=== PATIENT | female | born 1980 ===

== ENCOUNTER 2017-06-28 04:36 | Emergency (ER) | payer BC ==
[2017-06-28 04:50] VITALS: BMI 42.7
[2017-06-28 05:48] LABS: BASO % 0.5 % (0.0-2.0); EOS # 0.2 K/uL (0.0-0.7); EOS % 4.6 % (0.0-4.0); HEMATOCRIT 34.4 % (34.0-47.0); LYMPH # 1.4 K/uL (1.0-4.3); LYMPH % 30.4 % (20.0-40.0); MEAN CELL VOLUME 81.5 fl (81.0-99.0); MEAN CORPUSCULAR HEMOGLOBIN 26.2 pg (27.0-31.0); MEAN CORPUSCULAR HGB CONC 32.2 g/dL (33.0-37.0); MEAN PLATELET VOLUME 7.4 fl (7.2-11.7); MONO # 0.5 K/uL (0.0-0.8); MONO % 11.1 % (0.0-10.0); NEUT # 2.5 K/uL (1.8-7.0); NEUT % 53.4 % (50.0-75.0); WHITE BLOOD COUNT 4.6 K/uL (4.8-10.8)
--- NOTE | 2017-06-28 05:52 | ED PDOC ---
HPI: General Adult Time Seen by Provider: 06/28/17 04:41 Chief Complaint (Nursing): Chest Pain History Per: Patient History/Exam Limitations: no limitations Onset/Duration Of Symptoms: Days Have you had recent travel within the past 21 days to any of the following countries: [place], [place], [place] or [place]?: No Current Symptoms Are (Timing): Still Present Severity: Moderate Recently: Seen In ED, Hospitalized Additional History Per: Patient Additional Complaint(s): 37 y/o female here this morning with multiple complaints. She complains of cough for the last few days and associated with chest discomfort. Patient denies any fever or chills. She also complains of episodes of forgetfulness and confusion that last for months, and have been ongoing for some time. Patient was seen at [facility] in March 2017 for the same, and admitted then discharged after a negative work up. She was also evaluated for seizure/pseudoseizure this was negative as well. Patient was not given a specific diagnosis but was told that her complaints may be due to a drug interaction (Methadone, Trileptal, and Wellbutrin among others) and was encouraged to discontinue Wellbutrin. She did stop the Wellbutrin and felt better but not back to previous baseline. Patient was instructed to follow up with Neurology but was unable to do so because of insurance coverage changes. Of note, patient has been seen in this department on several occasions for crisis evaluation. Past Medical History Vital Signs: Last Vital Signs Temp 98.9 F 06/28/17 07:39 Pulse 82 06/28/17 07:39 Resp 18 06/28/17 07:39 BP 116/54 L 06/28/17 07:39 Pulse Ox 95 07/01/17 10:34 - Medical History PMH: Anxiety, Back Problems (scoliosis), Bipolar Disorder, Depression, Diabetes (pre) Other PMH: Lupus - Surgical History Surgical History: No Surg Hx - Family History Family History: States: Unknown Family Hx - Social History Current smoker - smoking cessation education provided: No Ex-Smoker (has not smoked in the last 12 months): No Alcohol: None Drugs: Denies - Immunization History Hx Tetanus Toxoid Vaccination: No Hx Influenza Vaccination: No Hx Pneumococcal Vaccination: No - Home Medications Home Medications: Ambulatory Orders Medication Instructions Recorded LORazepam 1 mg PO TID 11/17/14 Synthroid 150 mg PO DAILY 11/17/14 Vitamin D 50,000 units PO Q2W 11/17/14 Zolpidem Tartrate 12.5 mg PO HS #10 ter 11/17/14 Cyclobenzaprine HCl [Flexeril] 1 tab PO TID PRN #25 tab 12/29/14 Ibuprofen 800 mg PO TID #20 tab 12/29/14 Soma 350 mg PO Q6 12/29/14 Fioricet 1 tab PO Q6 02/06/16 Hydroxychloroquine Sulfate 200 mg PO DAILY 02/06/16 [Plaquenil] Levocetirizine Dihydrochloride 5 mg PO 02/06/16 [Levocetirizine Dihydrochloride] Liraglutide [Saxenda] 3 mg SQ 02/06/16 Lurasidone HCl [Latuda] 60 mg PO 02/06/16 Nitrofurantoin Macrocrystals 100 mg PO BID #14 cap 02/06/16 [Macrobid] Temazepam [Restoril] 30 mg PO HS 02/06/16 Thyroid,Pork [Fulda Thyroid] 120 mg PO DAILY 02/06/16 Topiramate [Topamax] 25 mg PO BID 02/06/16 buPROPion [Bupropion HCl] 150 mg PO DAILY 02/06/16 Albuterol HFA [Ventolin HFA 90 1 - 2 puff IH Q4H PRN #1 bottle 06/28/17 mcg/actuation (8 g)] - Allergies Allergies/Adverse Reactions: Allergies Allergy/AdvReac Type Severity Reaction Status Date / Time Penicillins Allergy RASH Verified 06/28/17 04:50 Review of Systems ROS Statement: Except As Marked, All Systems Reviewed And Found Negative Cardiovascular: Positive for: Chest Pain Respiratory: Positive for: Cough Psych: Negative for: Suicidal ideation Physical Exam - Reviewed Nursing Documentation Reviewed: Yes Vital Signs Reviewed: Yes - Physical Exam Appears: Positive for: Well, Non-toxic, No Acute Distress Head Exam: Positive for: ATRAUMATIC, NORMAL INSPECTION, NORMOCEPHALIC Skin: Positive for: Normal Color, Warm, DRY Eye Exam: Positive for: EOMI, Normal appearance, PERRL ENT: Positive for: Normal ENT Inspection Neck: Positive for: Normal, Painless ROM Cardiovascular/Chest: Positive for: Regular Rate, Rhythm Respiratory: Positive for: CNT, Normal Breath Sounds Gastrointestinal/Abdominal: Positive for: Normal Exam, Bowel Sounds, Soft Back: Positive for: Normal Inspection Extremity: Positive for: Normal ROM Neurologic/Psych: Positive for: Alert, Oriented. Negative for: Motor/Sensory Deficits - Laboratory Results Result Diagrams: 06/28/17 05:35 06/28/17 05:35 - ECG O2 Sat by Pulse Oximetry: 95 - Radiology X-Ray: Interpreted by Me, Viewed By Me X-Ray Interpretation: No Acute Disease Medical Decision Making Medical Decision Making: Impression: R/O PNA, psychiatric illness, medication interaction Plan: - Labs - CXR Patient given an Albuterol treatment. Labs and CXR reviewed. Patient referred to outpatient neurology. Rx for Albuterol MDI given. All questions answered. Patient discharged in stable condition. Diagnosis: Cough Scribe Attestation: Documented by Cary Heck acting as a scribe for Tiago Kong MD. Scribe Attestation: All medical record entries made by the Scribe were at my direction and personally dictated by me. I have reviewed the chart and agree that the record accurately reflects my personal performance of the history, physical exam, medical decision making, and the department course for this patient. I have also personally directed, reviewed, and agree with the discharge instructions and disposition. Disposition - Clinical Impression Clinical Impression: Cough - Patient ED Disposition Is Patient to be Admitted: No Doctor Will See Patient In The: Office Counseled Patient/Family Regarding: Studies Performed, Diagnosis, Need For Followup - Disposition Referrals: [facility] [Outside] [facility] [Outside] Israel Chávez MD [Staff Provider] - Disposition: Routine/Home Disposition Time: 06:40 Condition: IMPROVED Additional Instructions: follow up with your primary doctor/neurologist return to the ED with any worsening or concerning symptoms Prescriptions: Albuterol HFA [Ventolin HFA 90 mcg/actuation (8 g)] 1 - 2 puff IH Q4H PRN #1 bottle PRN Reason: Wheezing Instructions: Acute Cough (ED) Forms: [employer] (Persian)
[2017-06-28 05:54] LABS: ALB/GLOB RATIO 1.3 (1.0-2.1); ALKALINE PHOSPHATASE 65 U/L (38-126); ALT/SGPT 42 U/L (9-52); AST/SGOT 48 U/L (14-36); BILIRUBIN,TOTAL 0.5 mg/dl (0.2-1.3); BLOOD UREA NITROGEN 16 mg/dl (7-17); CALCIUM 8.9 mg/dL (8.4-10.2); CARBON DIOXIDE 26 mmol/L (22-30); CHLORIDE 95 mmol/L (98-107); GFR AFRICAN-AMERICAN > 60; GLUCOSE,RANDOM 98 mg/dL (65-105); POTASSIUM 4.6 MMOL/L (3.6-5.0); SODIUM 131 mmol/l (132-148); TOTAL PROTEIN 7.6 G/DL (6.3-8.2)
[2017-06-28] MEDS ORDERED: Albuterol 0.083% Inhal Sol (2.5 mg/3 mL) UD INH ONE (06:59)
[2017-06-28] MEDS ORDERED: Albuterol-Ipratrop 3 mg / 0.5 (3 ml) UD ONE (07:16)
[2017-06-28] MEDS ORDERED: Albuterol 0.083% Inhal Sol (2.5 mg/3 mL) UD ONE (07:20)
[2017-06-28 07:40] VITALS: BP 116/54; PULSE 82; RESP 18; TEMP 98.9
--- NOTE | 2017-06-28 10:11 | RAD ---
HISTORY: cough COMPARISON: No prior. TECHNIQUE: Chest PA and lateral FINDINGS: LUNGS: Minor bibasilar atelectasis PLEURA: No significant pleural effusion identified. No pneumothorax apparent. CARDIOVASCULAR: Normal. OSSEOUS STRUCTURES: No significant abnormalities. VISUALIZED UPPER ABDOMEN: Normal. OTHER FINDINGS: None. IMPRESSION: Minor bibasilar atelectasis
[2017-07-01 08:23] VITALS: O2SAT 95
== END 2017-06-28 08:10 | disposition home or self-care (01) ==
LOC: H.ER 04:36
DX: R07.89 Other chest pain (principal); R05 Cough; E11.9 Type 2 diabetes mellitus without complications; F31.9 Bipolar disorder, unspecified; F41.9 Anxiety disorder, unspecified; M32.9 Systemic lupus erythematosus, unspecified; Z88.0 Allergy status to penicillin